=== PATIENT | male | born 1955 | race Caucasian/White ===

== ENCOUNTER 2022-04-30 12:14 | Inpatient (IN) | payer OTHER ==
[2022-04-30] MEDS ORDERED: LORazepam 2 MG/ML SDV VIAL IVPUSH ONE ×3 (12:27→14:01)
[2022-04-30 12:49] LABS: BASO % 0.2 % (0-2.0); EOS % 2.3 % (0-4.5); HEMATOCRIT 49.7 % (35.4-49); HEMOGLOBIN 16.2 GM/dL (11.7-16.9); LYMPH % 16.4 % (8-40); MCH 29.4 pg (25.7-33.7); MCHC 32.7 g/dl (32.0-35.9); MEAN PLT VOLUME 9.4 fl (7.5-11.1); MONO % 8.3 % (3.8-10.2); NEUT % 72.8 % (42.8-82.8); PLATELET COUNT 180 10^3/uL (134-434); RBC 5.52 M/mm3 (4.00-5.60); RDW 14.3 % (11.9-15.9)
[2022-04-30 12:58] LABS: INR 1.04 (0.83-1.09); PROTHROMBIN TIME (PATIENT) 12.1 SEC (9.7-13.0)
[2022-04-30 13:01] LABS: ACTIVATED PTT 31.7 SECONDS (25.2-36.5)
[2022-04-30] MEDS ORDERED: SODIUM CHLORIDE 0.9% 500 ML INFUS.BAG IV ONE (13:08)
[2022-04-30 13:18] LABS: CALCIUM 8.6 mg/dL (8.5-10.1)
[2022-04-30 13:19] LABS: ALBUMIN 3.7 g/dl (3.4-5.0); BLOOD UREA NITROGEN 15.8 mg/dL (7-18)
[2022-04-30 13:22] LABS: CREATININE 0.9 mg/dL (0.55-1.3)
[2022-04-30 13:23] LABS: BILIRUBIN,TOTAL 0.8 mg/dL (0.2-1); TOT PROT 7.2 g/dl (6.4-8.2)
[2022-04-30] MEDS ORDERED: levETIRAcetam 500 MG/5 ML INJECTION VIAL IVPB ONE ×2 (13:23→13:25)
[2022-04-30] MEDS ORDERED: FOSPHENYTOIN SODIUM 1,500 MG in SODIUM CHLORIDE 100 ML IVPB ONE ×2 (13:55→14:45)
[2022-04-30] MEDS ORDERED: SUCCINYLCHOLINE CHLORIDE 200 MG/10 ML VIAL IVPUSH ONE (14:24)
[2022-04-30] MEDS ORDERED: PROPOFOL 200 MG/20 ML VIAL IVPUSH ONE ×2 (14:24→15:52)
[2022-04-30] MEDS ORDERED: RAPID SEQUENCE INTUBATION KIT NR ONE (14:36)
[2022-04-30] MEDS ORDERED: PROPOFOL 1,000,000 MCG/100 ML VIAL ONE (14:36)
[2022-04-30] MEDS: PROPOFOL 1,000,000 MCG/100 ML VIAL IVPB SCH (15:47)
[2022-04-30] MEDS ORDERED: FENTANYL CITRATE/PF 50 MCG/ML VIAL ONE (15:52)
[2022-04-30] MEDS: MIDAZOLAM IN 0.9 % SOD.CHLORID 100 MG/100 ML PLAST..BAG IVPB SCH (21:45)
[2022-04-30] MEDS: levETIRAcetam 500 MG/5 ML INJECTION VIAL IVPB SCH (22:19)
[2022-05-01] MEDS: FENTANYL NS IVPB 500 MCG/100 ML BAG IVPB SCH ×2 (01:24→06:13)
[2022-05-01 07:23] LABS: HEMATOCRIT 43.9 % (35.4-49); HEMOGLOBIN 14.6 GM/dL (11.7-16.9); MCH 29.7 pg (25.7-33.7); MCHC 33.1 g/dl (32.0-35.9); MEAN CELL VOLUME 89.5 fl (80-96); MEAN PLT VOLUME 9.4 fl (7.5-11.1); PLATELET COUNT 141 10^3/uL (134-434); RBC 4.91 M/mm3 (4.00-5.60); RDW 14.6 % (11.9-15.9); WHITE BLOOD COUNT 9.4 K/mm3 (4.0-10.0)
[2022-05-01 07:52] LABS: BLOOD UREA NITROGEN 16.3 mg/dL (7-18); MAGNESIUM 1.8 mg/dL (1.8-2.4)
[2022-05-01 07:55] LABS: CREATININE 0.9 mg/dL (0.55-1.3); PHOSPHOROUS 3.7 mg/dL (2.5-4.9)
[2022-05-01] MEDS: levETIRAcetam 500 MG/5 ML INJECTION VIAL IVPB SCH ×2 (09:55→21:34)
[2022-05-01] MEDS: PANTOPRAZOLE SODIUM 40 MG VIAL IVPUSH SCH (10:00)
[2022-05-01] MEDS ORDERED: REMDESIVIR 200 MG in SODIUM CHLORIDE 250 ML IVPB ONE (13:00)
[2022-05-01] MEDS: PROPOFOL 1,000,000 MCG/100 ML VIAL IVPB SCH (17:09)
[2022-05-01] MEDS ORDERED: ACETAMINOPHEN 1000 MG/100 ML BAG IVPB ONE (17:59)
[2022-05-01] MEDS: RIVAROXABAN 20 MG TABLET PO SCH (18:03)
[2022-05-01] MEDS: MIDAZOLAM IN 0.9 % SOD.CHLORID 100 MG/100 ML PLAST..BAG IVPB SCH (20:50)
[2022-05-02] MEDS: FENTANYL NS IVPB 500 MCG/100 ML BAG IVPB SCH (00:59)
[2022-05-02 07:34] LABS: HEMOGLOBIN 15.3 GM/dL (11.7-16.9); MCH 30.5 pg (25.7-33.7); MCHC 33.2 g/dl (32.0-35.9); MEAN PLT VOLUME 10.3 fl (7.5-11.1); PLATELET COUNT 122 10^3/uL (134-434); RDW 14.5 % (11.9-15.9); WHITE BLOOD COUNT 11.2 K/mm3 (4.0-10.0)
[2022-05-02 08:06] LABS: BLOOD UREA NITROGEN 16.9 mg/dL (7-18); CALCIUM 8.4 mg/dL (8.5-10.1); MAGNESIUM 2.1 mg/dL (1.8-2.4)
[2022-05-02 08:09] LABS: CREATININE 0.9 mg/dL (0.55-1.3); PHOSPHOROUS 1.9 mg/dL (2.5-4.9)
[2022-05-02 08:11] LABS: BILIRUBIN,TOTAL 0.9 mg/dL (0.2-1); TOT PROT 6.2 g/dl (6.4-8.2)
[2022-05-02] MEDS: ACETAMINOPHEN 1000 MG/100 ML BAG IVPB PRN ×2 (08:25→20:51)
[2022-05-02 08:32] LABS: ALBUMIN 2.9 g/dl (3.4-5.0)
[2022-05-02] MEDS ORDERED: POTASSIUM PHOSPHATE 30 MM in SODIUM CHLORIDE 250 ML IVPB ONE (09:15)
[2022-05-02] MEDS: PANTOPRAZOLE SODIUM 40 MG VIAL IVPUSH SCH (09:44)
[2022-05-02] MEDS: levETIRAcetam 500 MG/5 ML INJECTION VIAL IVPB SCH ×2 (10:36→21:25)
[2022-05-02] MEDS: REMDESIVIR 100 MG in SODIUM CHLORIDE 250 ML IVPB SCH (12:55)
[2022-05-02 14:22] VITALS: BMI 25.8
[2022-05-02] MEDS ORDERED: DEXMEDETOMIDINE PREMIX 400 MCG/100 ML BAG IVPB SCH ×2 (17:30)
[2022-05-02] MEDS: PROPOFOL 1,000,000 MCG/100 ML VIAL IVPB SCH (19:13)
[2022-05-02] MEDS: RIVAROXABAN 20 MG TABLET PO SCH (19:13)
[2022-05-02] MEDS: MIDAZOLAM IN 0.9 % SOD.CHLORID 100 MG/100 ML PLAST..BAG IVPB SCH (20:52)
[2022-05-03] MEDS: FENTANYL NS IVPB 500 MCG/100 ML BAG IVPB SCH (01:10)
[2022-05-03 07:42] LABS: HEMOGLOBIN 16.2 GM/dL (11.7-16.9); MCH 30.4 pg (25.7-33.7); MCHC 33.1 g/dl (32.0-35.9); MEAN CELL VOLUME 91.8 fl (80-96); PLATELET COUNT 129 10^3/uL (134-434); RBC 5.34 M/mm3 (4.00-5.60); RDW 14.5 % (11.9-15.9); WHITE BLOOD COUNT 13.6 K/mm3 (4.0-10.0)
[2022-05-03 08:18] LABS: ALBUMIN 2.9 g/dl (3.4-5.0); BLOOD UREA NITROGEN 15.3 mg/dL (7-18); CALCIUM 8.3 mg/dL (8.5-10.1)
[2022-05-03 08:21] LABS: CREATININE 0.7 mg/dL (0.55-1.3); PHOSPHOROUS 2.3 mg/dL (2.5-4.9)
[2022-05-03 08:23] LABS: TOT PROT 6.6 g/dl (6.4-8.2)
[2022-05-03] MEDS ORDERED: POTASSIUM PHOSPHATE 30 MM in SODIUM CHLORIDE 250 ML IVPB ONE (09:30)
[2022-05-03] MEDS: PANTOPRAZOLE SODIUM 40 MG VIAL IVPUSH SCH (09:37)
[2022-05-03] MEDS: levETIRAcetam 500 MG/5 ML INJECTION VIAL IVPB SCH ×2 (09:37→21:54)
[2022-05-03] MEDS ORDERED: ESCITALOPRAM OXALATE 5 MG/5 ML NGT SCH (10:00)
[2022-05-03] MEDS ORDERED: MIRTAZAPINE 15 MG TABLET (FP) PO SCH (10:00)
[2022-05-03] MEDS ORDERED: ATORVASTATIN CA 20 MG TABLET (FP) NGT SCH (10:00)
[2022-05-03 10:32] LABS: ARTERIAL BLD GAS O2 SATURATION 98.1 % (95-98); ARTERIAL BLOOD GAS BASE EXCESS 2.3 mmol/L (-2-2); ARTERIAL BLOOD GAS PO2 113.2 mmHg (80-100); ARTERIAL BLOOD GAS pH 7.402 (7.350-7.450)
[2022-05-03 10:33] LABS: ALLENS TEST POSITIVE
[2022-05-03 10:34] LABS: VENT MODE S/T; VENT RATE 14
[2022-05-03] MEDS ORDERED: CEFTRIAXONE 1 GM in DEXTROSE 5%-WATER - 50 ML IVPB SCH (11:15)
[2022-05-03] MEDS: REMDESIVIR 100 MG in SODIUM CHLORIDE 250 ML IVPB SCH (12:11)
[2022-05-03 13:55] LABS: EPI CELLS 9 /uL (0-25.1); HYALINE CASTS 0 /uL (0-3.1); PH,URINE 5.5 (5.0-8.0); URINE APPEARANCE CLEAR; URINE BACTERIA 6 /uL (0-1359); URINE BILIRUBIN NEGATIVE (NEGATIVE); URINE COLOR YELLOW; URINE GLUCOSE (UA) 3+ (NEGATIVE); URINE KETONE 4+ (NEGATIVE); URINE LEUK ESTERASE NEGATIVE (NEGATIVE); URINE NITRITE NEGATIVE (NEGATIVE); URINE PROTEIN 1+ (NEGATIVE); URINE RBC 3707 /uL (0-23.9); URINE WBC 14 /uL (0-25.8)
[2022-05-03] MEDS ORDERED: LIDOCAINE HCL 2% JELLY 10 ML CARTRIDGE UR ONE (15:00)
[2022-05-03] MEDS: RIVAROXABAN 20 MG TABLET PO SCH (17:11)
[2022-05-03] MEDS: ACETAMINOPHEN 1000 MG/100 ML BAG IVPB PRN (18:40)
[2022-05-03 21:16] LABS: ARTERIAL BLD GAS O2 SATURATION 96.5 % (95-98); ARTERIAL BLOOD GAS BASE EXCESS 0.6 mmol/L (-2-2)
[2022-05-03 21:17] LABS: ALLENS TEST POSITIVE; VENT MODE S/T; VENT RATE 14
[2022-05-04] MEDS: ACETAMINOPHEN 1000 MG/100 ML BAG IVPB PRN (01:27)
[2022-05-04] MEDS ORDERED: LABETALOL HCL 5 MG/1 ML (100MG/20 ML VIAL) IVPUSH PRN ×2 (07:41→07:46)
[2022-05-04] MEDS ORDERED: LABETALOL HCL 5 MG/1 ML (100MG/20 ML VIAL) IVPUSH SCH (07:46)
[2022-05-04] MEDS ORDERED: RAPID SEQUENCE INTUBATION KIT NR ONE (07:51)
[2022-05-04] MEDS ORDERED: MANNITOL 25% 12.5 GM/50 ML VIAL IVPB ONE (08:12)
[2022-05-04] MEDS ORDERED: LABETALOL HCL 20 MG/4 ML VIAL IVPUSH PRN ×2 (08:30→08:32)
[2022-05-04] MEDS ORDERED: PROPOFOL 1,000,000 MCG/100 ML VIAL IVPB SCH (08:45)
[2022-05-04] MEDS ORDERED: MANNITOL IVPB ONE (09:00)
[2022-05-04] MEDS: levETIRAcetam 500 MG/5 ML INJECTION VIAL IVPB SCH (09:45)
[2022-05-04 10:15] VITALS: BP 133/77; PULSE 118; RESP 22; TEMP 100.2
== END 2022-05-04 10:23 | disposition short-term general hospital (02) | DRG 64 ==
LOC: JER 12:14 → JERBED 15:53 → JICU 19:42
PROVIDERS: ADMIT Internal Medicine Pulmonary Disease; ATTEND Internal Medicine Pulmonary Disease
PROC: 5A1945Z Respiratory Ventilation, 24-96 Consecutive Hours (ICD-10-PCS; principal; 2022-04-30)
PROC: 0BH17EZ Insertion of Endotracheal Airway into Trachea, Via Natural or Artificial Opening (ICD-10-PCS; 2022-04-30)
PROC: XW033E5 Introduction of Remdesivir Anti-infective into Peripheral Vein, Percutaneous Approach, New Technology Group 5 (ICD-10-PCS; 2022-05-01)
PROC: 5A1935Z Respiratory Ventilation, Less than 24 Consecutive Hours (ICD-10-PCS; 2022-05-04)
PROC: 0BH17EZ Insertion of Endotracheal Airway into Trachea, Via Natural or Artificial Opening (ICD-10-PCS; 2022-05-04)
DX: I62.9 Nontraumatic intracranial hemorrhage, unspecified (principal); U07.1 COVID-19; G40.901 Epilepsy, unspecified, not intractable, with status epilepticus; I25.10 Atherosclerotic heart disease of native coronary artery without angina pectoris; I48.91 Unspecified atrial fibrillation; Z79.01 Long term (current) use of anticoagulants; I11.0 Hypertensive heart disease with heart failure; I50.9 Heart failure, unspecified; E78.5 Hyperlipidemia, unspecified; I69.322 Dysarthria following cerebral infarction
CPT/HCPCS: 31500; 36415; 36600; 70450-TC; 71045-TC-FY; 80048; 80053; 80177; 81003; 82550; 82803; 82962; 83605; 83735; 84100; 84484; 85025; 85027; 85610; 85730; 87040; 87086; 93005; 93010; 94002; 94660; 99291; C9399; C9803-CS; U0003; U0005